=== PATIENT | male | born 1975 ===

== ENCOUNTER 2022-05-23 11:34 | Emergency (ER) | payer OTHER ==
[~2022-05-23] VITALS: Ht 180.3 cm; Wt 78.1 kg
[2022-05-23 11:43] VITALS: BP 140/84
--- NOTE | 2022-05-23 12:06 | ED EENT ---
History of Present Illness General Chief Complaint: Oral/Throat Problems Stated Complaint: THROAT/JAW SWELLING Source: patient History of Present Illness Date Seen by Provider: May 23, 2022 Time Seen by Provider: 11:38 Initial Comments 46-year-old male presenting to the emergency department after he was evaluated in the clinic in [place], [place] this morning. He stated that he had had throat pain and swelling for the last 3 days and difficulty swallowing. He had not really eat or drink hardly anything in the last 3 days because of the pain with swallowing. He felt like his throat was swelling to the point he was closing off yesterday. Today he was seen and reports that they did a rapid strep test and told him it was negative. He had been advised that he might have a peritonsillar abscess and he should go to have a CT scan to check for that and i f present would need ENT to drain it. Although he goes to [facility] for his medical care in general the provider he saw today told him to come here and that they were calling to let us know that he was coming. However, nobody had communicated that to myself or the nursing staff. He has a history of Diabetes that is diet controlled. He felt that he could at least swallow some today vs yesterday. Severity: severe Location: throat Prearrival Treatment: over the counter meds (yesterday) Modifying Factors: Worse With Other (swallowing and palpation of neck and jaw makes the pain worse) Associated Symptoms: No change in hearing, No cough, No drooling, No ear drainage; facial pain/swelling (left sided); No fever; malaise; No nasal congestion/drainage; poor fluid intake, poor solids intake; No sinus infection; sore throat; No tooth pain Allergies and Home Medications Allergies Coded Allergies: No Known Drug Allergies (Unverified , 05/23/22) Patient Home Medication List Home Medication List Reviewed: Yes Review of Systems Review of Systems Constitutional: see HPI Ears: See HPI Mouth: see HPI Throat: see HPI Past Dmyclho-Phkeqa-Njhtxh Hx Past Medical History Surgery/Hospitalization HX: Diabetes Mellitus, diet controlled Physical Exam Height, Weight, BMI Height: '" Weight: lbs. oz. kg; BMI Method: General Appearance: WD/WN, no apparent distress Mouth/Throat: pharynx swelling (left greater than right pharynx swelling and erythema. swelling on left extends up on to soft palate. no exudate present); No tonsillar exudate Neck: lymphadenopathy (R), lymphadenopathy (L) (tender to palpation left submandibular and neck area) Progress/Results/Core Measures Progress Progress Note : Progress Note potential diagnosis of peritonsillar abscess, viral pharyngitis, strep pharyngitis, throat mass. Advised patient that we can do a CT scan of the neck to look and see if there is an abscess present. If there is one there he would have to be transferred to a facility or at least ENT doctor office for drainage and definitive treatment sin ce we do not have those services here at the stand alone emergency department in [place]. He asked if he needed to go somewhere else to be seen to have everything done rather than start here and then have to go somewhere. I told him that we can at least see if he even needs a surgeon to drain anything in his throat with the CT scan but would have to establish a peripheral IV and draw labs before we could do the CT scan of the neck with IV contrast. He further discussed it with his and they decided they would rather leave and drive north to [facility] and be seen there so if he needs a procedure he can just have it all done in one place. He understands that he is leaving against medical advice as we have not fully evaluated his condition but states he would prefer to go to [place] as he usually receives care in [place] or [place] anyway. Departure Impression Primary Impression: Acute pharyngitis Qualified Codes: J02.9 - Acute pharyngitis, unspecified Additional Impression: Left against medical advice Disposition: 07 AGAINST MEDICAL ADVICE Condition: Stable/Unchanged Departure-Patient Inst. Decision time for Depature: 11:52 Referrals: SILAS GRAY MD (PCP) Primary Care Physician Patient Instructions: Leaving Against Medical Advice, Sore Throat, Adult ED, Peritonsillar Abscess, Adult (DC) Add. Discharge Instructions: You could have a peritonsillar abscess that would require an ENT surgeon to do a surgical procedure to drain the abscess in your throat. You are leaving against medical advice as you have not been fully evaluated here. Make sure that you go directly to [facility] or location of your choice in the [facility] area to be seen when leaving here to determine the cause and more specific treatment for your condition. All discharge instructions reviewed with patient and/or family. Voiced understanding. HELLEN BRIONES MD May 23, 2022 12:06
== END 2022-05-23 11:55 | disposition left against medical advice (07) ==
LOC: ER FS 11:37
DX: J02.9 Acute pharyngitis, unspecified (principal); Z28.310 Unvaccinated for COVID-19
CPT/HCPCS: 99283